=== PATIENT | female | born 1995 | race American Indian/Alaskan Native ===

== ENCOUNTER 2016-07-05 17:00 | Emergency (ER) | payer BC, OTHER ==
[2016-07-05 17:01] VITALS: BMI 18.9
[2016-07-05 17:20] VITALS: RESP 18
--- NOTE | 2016-07-05 18:34 | C.PDOC ---
History Of Present Illness Patient is a 20 year old female who presents to the ER for suprapubic cramping and vaginal blood spotting over the last few days. [facility] to induce a miscarry. Patient states she bled the next day and has been bleeding since then but has gotten worse over the last few days. Patient is P: 0 and denies any fever, nausea , or vomiting. Time Seen by Provider: 07/05/16 18:15 Chief Complaint (Nursing): Female Genitourinary History Per: Patient History/Exam Limitations: no limitations Onset/Duration Of Symptoms: Days (Last few days) Current Symptoms Are (Timing): Still Present Quality Of Discomfort: Cramping (Suprapubic) Associated Symptoms: denies: Fever, Chills, Nausea, Vomiting Past Medical History Reviewed: Historical Data, Nursing Documentation, Vital Signs Vital Signs: Last Vital Signs Temp 98.2 F 07/05/16 17:16 Pulse 70 07/05/16 17:16 Resp 18 07/05/16 17:16 BP 118/83 07/05/16 17:16 Pulse Ox 99 07/05/16 20:16 Family History: States: Unknown Family Hx - Social History Hx Alcohol Use: Yes Hx Substance Use: No Review Of Systems Constitutional: Negative for: Fever, Chills Cardiovascular: Negative for: Palpitations Respiratory: Negative for: Shortness of Breath Gastrointestinal: Positive for: Abdominal Pain (Suprapubic cramping). Negative for: Nausea, Vomiting Genitourinary: Positive for: Vaginal Bleeding Physical Exam - Physical Exam Appears: Well, Non-toxic, No Acute Distress Skin: Normal Color, Warm, Dry Head: Atraumatic, Normacephalic Oral Mucosa: Moist Chest: Symmetrical Cardiovascular: Rhythm Regular Respiratory: Normal Breath Sounds, No Rales, No Rhonchi, No Wheezing Gastrointestinal/Abdominal: Soft, No Tenderness Neurological/Psych: Oriented x3, Normal Speech, Normal Cognition ED Course And Treatment - Laboratory Results Result Diagrams: 07/05/16 18:35 07/05/16 18:35 Lab Interpretation: No Acute Changes Interpretation Of Abnormal: BHCG 149 O2 Sat by Pulse Oximetry: 99 (Room air) Pulse Ox Interpretation: Normal - CT Scan/US US of pelvis/transvaginal Other Rad Studies (CT/US): Read By Radiologist, Radiology Report Reviewed CT/US Interpretation: IMPRESSION: 1. Complex fluid noted within the endometrial canal. No findings 2 suggest retained placental products. Progress Note: Blood type and screening, blood work, pelvic US and tranvaginal US ordered. Reevaluation Time: 20:17 Reassessment Condition: Unchanged (Patient remains comfortable without abdominal pain.) Disposition Counseled Patient/Family Regarding: Studies Performed, Diagnosis, Need For Followup - Disposition Referrals: Nora Graves MD [Medical Doctor] - Disposition: HOME/ ROUTINE Disposition Time: 20:17 Condition: STABLE Instructions: Spontaneous Miscarriage (ED) - Clinical Impression Clinical Impression: (induced) termination of with other complications - Scribe Statement The provider has reviewed the documentation as recorded by the Scribe Surya Ware All medical record entries made by the Scribe were at my direction and personally dictated by me. I have reviewed the chart and agree that the record accurately reflects my personal performance of the history, physical exam, medical decision making, and the department course for this patient. I have also personally directed, reviewed, and agree with the discharge instructions and disposition.
[2016-07-05 18:42] LABS: BASO % 0.3 % (0.0-2.0); EOS # 0.1 K/uL (0.0-0.7); EOS % 1.4 % (0.0-4.0); HEMATOCRIT 33.4 % (34.0-47.0); LYMPH # 2.2 K/uL (1.0-4.3); LYMPH % 38.9 % (20.0-40.0); MEAN CELL VOLUME 86.9 fL (81.0-99.0); MEAN CORPUSCULAR HEMOGLOBIN 29.5 pg (27.0-31.0); MEAN CORPUSCULAR HGB CONC 33.9 g/dL (33.0-37.0); MEAN PLATELET VOLUME 7.9 fL (7.2-11.7); MONO # 0.5 K/uL (0.0-0.8); MONO % 8.1 % (0.0-10.0); WHITE BLOOD COUNT 5.7 K/uL (4.8-10.8)
[2016-07-05 18:50] LABS: CHLORIDE 98 mmol/L (98-107)
[2016-07-05 18:51] LABS: POTASSIUM 4.6 mmol/L (3.6-5.2); SODIUM 139 mmol/L (132-148)
[2016-07-05 18:53] LABS: ALB/GLOB RATIO 1.2 (1.0-2.1); ALKALINE PHOSPHATASE 62 U/L (38-126); AST/SGOT 41 U/L (14-36); BILIRUBIN,TOTAL 0.6 mg/dL (0.2-1.3); BLOOD UREA NITROGEN 10 mg/dL (7-17); CARBON DIOXIDE 26 mmol/L (22-30); GFR AFRICAN-AMERICAN > 60; TOTAL PROTEIN 8.6 g/dL (6.3-8.3)
[2016-07-05 18:54] LABS: ALT/SGPT 17 U/L (9-52); CALCIUM 9.5 mg/dl (8.6-10.4); GLUCOSE,RANDOM 80 mg/dL (65-105)
[2016-07-05 20:33] VITALS: BP 120/59; PULSE 78; TEMP 98.1; O2SAT 98
--- NOTE | 2016-07-06 10:12 | US ---
HISTORY: vaginal bleeding COMPARISON: None available. TECHNIQUE: Real-time transabdominal pelvic ultrasound was performed. In addition a transvaginal pelvic ultrasound was necessary to better depict pelvic anatomy FINDINGS: UTERUS: Measures 7.7 x 3.9 x 6.3 cm. Anteverted. ENDOMETRIUM: Measures 0.8 cm in diameter. The anterior endometrial wall is thicker than the posterior wall. Heterogeneous/complex fluid and debris within the endometrial canal. CERVIX: No cervical abnormality identified. RIGHT OVARY: Measures 2.3 x 1.8 x 2.9 cm. Blood flow is demonstrated. LEFT OVARY: Measures 3.2 x 1.9 x 2.3 cm. Blood flow is demonstrated. FREE FLUID: No significant free fluid noted. OTHER FINDINGS: None. IMPRESSION: Endometrial wall thickness measures approximately 0.8 cm. The anterior endometrial wall is thicker than the posterior wall. Heterogeneous/complex fluid and debris within the endometrial canal. Recommend correlation with quantitative beta HCG and continued follow-up. Preliminary impression was provided by virtual radiologic.
== END 2016-07-05 20:33 | disposition home or self-care (01) ==
LOC: C.ER 17:00
DX: O04.6 Delayed or excessive hemorrhage following (induced) termination of pregnancy (principal)